=== PATIENT | female | born 1945 | race Caucasian/White ===

== ENCOUNTER 2017-10-08 12:11 | Emergency (ER) | payer MEDICARE, BC, OTHER ==
[2017-10-08] MEDS ORDERED: Bupivacaine 0.5% 10 ML VIAL ONE (13:12)
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
--- NOTE | 2017-10-08 14:04 | RAD ---
RIGHT HAND 3 VIEWS: Date: 10/08/17 PROVIDED CLINICAL HISTORY: Right hand pain. FINDINGS: No evidence for fracture or other acute osseous abnormality. Alignment appears anatomic. Joint spaces appear preserved with exception of degenerative IP joint changes. IMPRESSION: No evidence for an acute osseous abnormality. If there is persistent clinical concern, conservative management and follow-up imaging are advised. POS: JOS
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
--- NOTE | 2017-10-08 15:35 | RAD ---
LEFT HAND RADIOGRAPHS THREE VIEWS 10/08/17 PROVIDED CLINICAL HISTORY: Post reduction. FINDINGS: Comparison is made with the examination performed earlier same date. Interval placement of splint mat erial. Additional significant interval change with respect to the prior examination is not apparent. IMPRESSION: As above. POS: JOS
== END 2017-10-08 14:04 | disposition home or self-care (01) ==
LOC: ERS 12:11
DX: S62.327A Displaced fracture of shaft of fifth metacarpal bone, left hand, initial encounter for closed fracture (principal); I10 Essential (primary) hypertension; M06.9 Rheumatoid arthritis, unspecified; L40.50 Arthropathic psoriasis, unspecified; V43.52XA Car driver injured in collision with other type car in traffic accident, initial encounter; W22.11XA Striking against or struck by driver side automobile airbag, initial encounter
CPT/HCPCS: 26605; J3490

== ENCOUNTER 2018-10-05 07:14 | Day surgery (SDC) | payer MEDICARE, BC ==
[~2018-10-05 07:14] MED LIST: Cyclopentolate 1% Opth Drop 2 ML BOT FS SCH; EPINEPHrine 0.3 MG in Ophthalmic Irrigation Solution 500 ML FS SCH; Phenylephrine 2.5% Ophth Soln 5 ML BOT FS SCH
[2018-10-05] MEDS ORDERED: Cyclopentolate 1% Opth Drop 2 ML BOT ONE (07:52)
[2018-10-05] MEDS ORDERED: Phenylephrine 2.5% Ophth Soln 5 ML BOT ONE (07:52)
[2018-10-05] MEDS ORDERED: Midazolam HCl 2 mg/2 ml Vial ONE (09:19)
[2018-10-05] MEDS ORDERED: PROPOFOL 20 ML ONE (09:19)
[2018-10-05] MEDS ORDERED: Fentanyl 100 MCG/2 ML VIAL ONE (09:19)
[2018-10-05] MEDS ORDERED: Triamcinolone 40 MG/ML VIAL ONE (11:07)
[2018-10-05] MEDS ORDERED: CEFAZOLIN 1 GM VIAL ONE (11:07)
[2018-10-05] MEDS ORDERED: Lidocaine 4% PF 5 ML AMP ONE (11:07)
[2018-10-05] MEDS ORDERED: Bupivacaine 0.75% 10 ML AMP ONE (11:07)
[2018-10-05] MEDS ORDERED: Maxitrol 0.1% Opth Oint 3.5 GM TUBE ONE (11:07)
[2018-10-05] MEDS ORDERED: Lidocaine 1% PF 5 ML VIAL ONE (11:07)
[2018-10-05] MEDS ORDERED: PROPOFOL 200 MG/20 ML VIAL ONE (11:07)
[2018-10-05] MEDS ORDERED: Indocyanine Green 25 MG/10 ML VIAL ONE (11:07)
--- NOTE | 2018-10-05 13:46 | OP ---
DATE OF PROCEDURE: 10/05/2018 PREOPERATIVE DIAGNOSIS: Macular hole, left eye. POSTOPERATIVE DIAGNOSIS: Macular hole, left eye. PROCEDURE PERFORMED: Pars plana vitrectomy, internal limiting membrane peel, left eye. ANESTHESIA: Local with monitored anesthesia care. PROCEDURE IN DETAIL: The patient was identified in the preoperative holding area. Appropriate informed consent for planned surgical procedure on the left eye had been obtained. The patient was transported to the operative suite. Appropriate cardiopulmonary monitoring was established. Local anesthesia was obtained using retrobulbar modified Van Lint lid block using 50:50 mixture of 4% lidocaine and 0.75% bupivacaine. The patient was prepped and draped in the usual sterile manner for ophthalmic surgery on the left eye. Lid speculum was placed in the left eye. A 25-gauge trocar was placed through the conjunctiva and sclera superotemporally, inferotemporally, and supranasally. Infusion line was placed inferotemporally. Light pipe vitreous cutter inserted to the eye. Core vitrectomy was performed. Posterior hyaloid face was elevated and peeled across the macula using vacuum suction. Indocyanine green dye was infused on the posterior pole x1 identifying extensive amount of scar tissue across the entire posterior pole. This was elevated superior nasal to the nerve and peeled all the way around to the macula including the foveal area. Complete air-fluid exchange was performed with 10 minutes being left for fluid to drain posteriorly. 28% sulfur hexafluoride gas was infused into the eye. Trocars were removed and the eye was noted to retain pressure well. Retrobulbar Kenalog and subconjunctival Ancef were placed. Antibiotic ointment was placed and the eye was patched and shielded. The patient was taken to the postoperative care unit in good condition, having suffered no immediate perioperative complications. The patient was instructed to keep the shield on, avoid lifting or bending. Followup in the morning with Dr. Bran. Job ID: [id number]
== END 2018-10-05 11:47 | disposition home or self-care (01) ==
LOC: SDC 07:14
PROVIDERS: ATTEND Ophthalmology Retina Specialist
PROC: 08T53ZZ Resection of Left Vitreous, Percutaneous Approach (ICD-10-PCS; principal; 2018-10-05)
PROC: 08NF3ZZ Release Left Retina, Percutaneous Approach (ICD-10-PCS; 2018-10-05)
DX: H35.342 Macular cyst, hole, or pseudohole, left eye (principal); Z79.82 Long term (current) use of aspirin; Z79.899 Other long term (current) drug therapy; Z88.0 Allergy status to penicillin; Z88.8 Allergy status to other drugs, medicaments and biological substances
CPT/HCPCS: 67025; J0171; J0690; J2001; J2250; J2704; J3010; J3301; J3490